=== PATIENT | male | born 1960 ===

== ENCOUNTER 2024-12-24 16:46 | Outpatient (CLI) | payer OTHER | END 2024-12-24 16:47 | disposition home or self-care (01) | LOC: LAB 16:46 | PROVIDERS: ATTEND Urology | DX: R97.20 Elevated prostate specific antigen [PSA] (principal) ==

== ENCOUNTER → 2025-03-18 14:18 | Outpatient (CLI) | payer OTHER | END | disposition home or self-care (01) | LOC: LAB 14:18 | PROVIDERS: ATTEND Urology | DX: R97.20 Elevated prostate specific antigen [PSA] (principal) ==

== ENCOUNTER 2025-05-27 14:52 | Outpatient (CLI) | payer OTHER | END 2025-05-27 14:57 | disposition home or self-care (01) | LOC: LAB 14:52 | PROVIDERS: ATTEND Urology | DX: R97.20 Elevated prostate specific antigen [PSA] (principal) ==

== ENCOUNTER 2025-07-21 07:21 | Outpatient (CLI) | payer OTHER | END 2025-07-21 07:27 | disposition home or self-care (01) | LOC: SONOGRAMA 07:21 | PROVIDERS: ATTEND Urology | DX: C61 Malignant neoplasm of prostate (principal); N40.1 Benign prostatic hyperplasia with lower urinary tract symptoms; R97.20 Elevated prostate specific antigen [PSA] ==